=== PATIENT | female | born 1960 | race Caucasian/White ===

== ENCOUNTER 2020-08-29 11:08 | Observation (INO) | payer BC, OTHER ==
[~2020-08-29] VITALS: Ht 167.6 cm; Wt 65.8 kg
[2020-08-29] MEDS ORDERED: GLUCAGON FOR INJ 1 MG VIAL IV ONE (11:30)
[2020-08-29 11:59] LABS: BASOPHILS % 0.3 % (0.0-1.0); EOSINOPHILS # (AUTO) 0.1 (0.0-0.4); HEMATOCRIT 39.2 % (34.2-44.1); HEMOGLOBIN 12.7 g/dL (12.0-16.0); LYMPHOCYTES # (AUTO) 1.9 (1.0-3.2); MEAN CORPUSCULAR HGB CONC 32.4 g/dL (31-35); MEAN CORPUSCULAR VOLUME 95.6 fL (81-99); MONOCYTES # (AUTO) 0.8 (0.2-0.8); MONOCYTES % 8.3 % (4.4-11.3); NEUTROPHILS # (AUTO) 6.4 (2.1-6.9); PLATELET COUNT 396 x10e3/uL (140-360)
[2020-08-29] MEDS ORDERED: ROCURONIUM BROMIDE 10 MG/ML 5ML VIAL IV ONE (12:23)
[2020-08-29] MEDS ORDERED: SUCCINYLCHOLINE CHLORIDE 20 MG/ML 10ML VIAL ONE (12:23)
[2020-08-29] MEDS ORDERED: NEOSTIGMINE 1 MG/ML 10ML VIAL ONE (12:23)
[2020-08-29] MEDS ORDERED: LIDOCAINE HCL 2% LOCAL INJ 5 ML SDV VIAL INJ ONE (12:23)
[2020-08-29] MEDS ORDERED: DEXAMETHASONE SOD PHOS INJ 4 MG/ML VIAL ONE (12:23)
[2020-08-29] MEDS ORDERED: PROPOFOL IV EMULSION 10 MG/ML 20 ML VIAL ONE (12:23)
[2020-08-29] MEDS ORDERED: SEVOFLURANE INHAL SOLN 250 ML PEN BTL ONE (12:23)
[2020-08-29] MEDS ORDERED: ATROPINE SULFATE 1 MG/ML VIAL ONE (12:23)
[2020-08-29] MEDS ORDERED: ONDANSETRON HCL INJ 2MG/ML 2ML 2 MG/ML VIAL ONE (12:23)
[2020-08-29] MEDS ORDERED: MIDAZOLAM HCL 2 MG/2 ML VIAL ONE (12:24)
[2020-08-29] MEDS ORDERED: FENTANYL CITRATE/PF 100MCG/2 ML INJ ONE (12:24)
[2020-08-29 12:25] LABS: ALANINE AMINOTRANSFERASE 38 IU/L (0-55); ALBUMIN 3.9 g/dL (3.5-5.0); ALKALINE PHOSPHATASE 151 IU/L (40-150); ANION GAP 18.9 mmol/L (8-16); BLOOD UREA NITROGEN 19 mg/dL (7-26); BUN/CREATININE RATIO 26 (6-25); CALCIUM 8.9 mg/dL (8.4-10.2); CARBON DIOXIDE 26 mmol/L (22-29); CHLORIDE 104 mmol/L (98-107); CREATININE, SERUM 0.72 mg/dL (0.57-1.11); EST GLOMERULAR FILTRATION RATE > 60 ML/MIN (60-); SODIUM 146 mmol/L (136-145)
[2020-08-29 12:28] LABS: GLUCOSE 56 mg/dL (74-118); POTASSIUM 2.9 mmol/L (3.5-5.1)
[2020-08-29] MEDS ORDERED: DEXTROSE 5% 250ML 250 ML IV ONE (19:16)
[2020-08-29 19:17] LABS: BASOPHILS % 0.2 % (0.0-1.0); EOSINOPHILS % 0.3 % (0.0-6.0); HEMATOCRIT 36.9 % (34.2-44.1); HEMOGLOBIN 11.9 g/dL (12.0-16.0); LYMPHOCYTES # (AUTO) 1.8 (1.0-3.2); LYMPHOCYTES % 19.8 % (18.0-39.1); MEAN CORPUSCULAR HEMOGLOBIN 31.1 pg (28-32); MEAN CORPUSCULAR HGB CONC 32.2 g/dL (31-35); MEAN CORPUSCULAR VOLUME 96.3 fL (81-99); MONOCYTES # (AUTO) 0.8 (0.2-0.8); MONOCYTES % 9.3 % (4.4-11.3); NEUTROPHILS # (AUTO) 6.3 (2.1-6.9); NEUTROPHILS % 70.1 % (38.7-80.0); PLATELET COUNT 347 x10e3/uL (140-360); RED BLOOD COUNT 3.83 x10e6/uL (3.6-5.1)
[2020-08-29 19:36] LABS: ANION GAP 21.1 mmol/L (8-16); BLOOD UREA NITROGEN 20 mg/dL (7-26); BUN/CREATININE RATIO 33 (6-25); CALCIUM 8.6 mg/dL (8.4-10.2); CARBON DIOXIDE 19 mmol/L (22-29); CHLORIDE 107 mmol/L (98-107); CREATININE, SERUM 0.61 mg/dL (0.57-1.11); EST GLOMERULAR FILTRATION RATE > 60 ML/MIN (60-); POTASSIUM 3.1 mmol/L (3.5-5.1); SODIUM 144 mmol/L (136-145)
[2020-08-29] MEDS ORDERED: PANTOPRAZOLE 40 MG 10ML VIAL IV STA (19:36)
[2020-08-29 19:38] LABS: GLUCOSE 44 mg/dL (74-118)
[2020-08-29] MEDS ORDERED: ONDANSETRON HCL INJ 2MG/ML 2ML 2 MG/ML VIAL IV PRN (19:45)
[2020-08-29] MEDS ORDERED: DEXTROSE 5% 1,000 ML IV ONE (19:45)
[2020-08-29] MEDS ORDERED: POTASSIUM CHLORIDE 20 MEQ TAB CR PO STA (19:55)
[2020-08-29] MEDS ORDERED: PANTOPRAZOLE 40 MG 10ML VIAL ONE ×2 (20:50→21:03)
[2020-08-29] MEDS ORDERED: HYDROXYZINE HCL 25 MG TAB PO SCH (21:00)
[2020-08-29] MEDS ORDERED: POTASSIUM CHLORIDE 20 MEQ TAB CR PO ONE (21:00)
[2020-08-29] MEDS ORDERED: TRAZODONE HCL 50 MG TAB PO SCH (21:00)
[2020-08-29] MEDS ORDERED: POTASSIUM CHLORIDE 20MEQ/100ML 200 ML IV ONE (22:45)
[2020-08-29] MEDS ORDERED: ORPHENADRINE C100 MG PO (23:03)
[2020-08-29] MEDS ORDERED: folic acid PO (23:03)
[2020-08-29] MEDS ORDERED: HUMIRA40 MG/0.1 SQ (23:03)
[2020-08-29] MEDS ORDERED: BUTRANS1 EAC2 TOP (23:03)
[2020-08-29] MEDS ORDERED: VALIUM10 MG PO (23:03)
[2020-08-29] MEDS ORDERED: BIOTIN2500 MCG PO (23:03)
[2020-08-29] MEDS ORDERED: HYDROXYZINE HCL25 MG PO (23:03)
[2020-08-29] MEDS ORDERED: TRAZODONE HCL100 MG PO (23:03)
[2020-08-29] MEDS ORDERED: HYDROXYCHLOROQ200 MG PO (23:03)
[2020-08-29] MEDS ORDERED: CLOBETASOL1 EA/15 GM TOP (23:03)
[2020-08-29] MEDS ORDERED: CALCIPOTRIENE60 G1 TOP (23:03)
[2020-08-29] MEDS ORDERED: SOOLANTRA TOP (23:03)
[2020-08-29] MEDS ORDERED: CYCLOBENZAPRINE5 MG PO (23:03)
[2020-08-29] MEDS ORDERED: AMLODIPINE BESYL5 MG PO (23:03)
[2020-08-29] MEDS ORDERED: GABAPENTIN300 MG PO (23:03)
[2020-08-29 23:09] VITALS: BP 138/72
[2020-08-29] MEDS ORDERED: SOOLANTRA TOP PRN (23:15)
[2020-08-29] MEDS ORDERED: CYCLOBENZAPRINE HCL 10 MG TAB PO PRN (23:15)
[2020-08-29] MEDS ORDERED: CLOBETASOL PROPIONATE 0.05% CRM 15 GM TUBE TOP SCH (23:15)
[2020-08-29] MEDS ORDERED: CALCIPOTRIENE TOP PRN (23:15)
[2020-08-29] MEDS ORDERED: BUPRENORPHINE TOP SCH (23:15)
[2020-08-29] MEDS ORDERED: DIAZEPAM 5 MG TAB PO PRN (23:15)
[2020-08-29] MEDS ORDERED: ACETAMINOPHEN 325 MG/10 ML UDC PO PRN (23:45)
[2020-08-29] MEDS: GABAPENTIN 300 MG CAP PO SCH (23:51)
[2020-08-29] MEDS: PANTOPRAZOLE INJ 40 MG in SODIUM CHLORIDE 0.9% 50ML 50 ML IV SCH (23:51)
[2020-08-30] VITALS (9 sets, daily range): BP systolic 105–138; BP diastolic 63–78
[2020-08-30 05:03] LABS: BASOPHILS % 0.1 % (0.0-1.0); HEMOGLOBIN 10.9 g/dL (12.0-16.0); LYMPHOCYTES # (AUTO) 0.7 (1.0-3.2); LYMPHOCYTES % 8.5 % (18.0-39.1); MEAN CORPUSCULAR VOLUME 93.8 fL (81-99); MONOCYTES # (AUTO) 0.1 (0.2-0.8); MONOCYTES % 1.2 % (4.4-11.3); NEUTROPHILS # (AUTO) 7.3 (2.1-6.9); NEUTROPHILS % 89.8 % (38.7-80.0); PLATELET COUNT 331 x10e3/uL (140-360); RED BLOOD COUNT 3.52 x10e6/uL (3.6-5.1); RED CELL DISTRIBUTION WIDTH 12.7 % (11.7-14.4)
[2020-08-30 05:16] LABS: CALCIUM IONIZED 1.2 mmol/L (1.09-1.30)
[2020-08-30 05:24] LABS: ALANINE AMINOTRANSFERASE 28 IU/L (0-55); ALKALINE PHOSPHATASE 118 IU/L (40-150); ANION GAP 28.4 mmol/L (8-16); BLOOD UREA NITROGEN 12 mg/dL (7-26); BUN/CREATININE RATIO 17 (6-25); CARBON DIOXIDE 24 mmol/L (22-29); CHLORIDE 91 mmol/L (98-107); CREATININE, SERUM 0.71 mg/dL (0.57-1.11); EST GLOMERULAR FILTRATION RATE > 60 ML/MIN (60-); GLUCOSE 166 mg/dL (74-118); MAGNESIUM 1.6 MG/DL (1.3-2.1); POTASSIUM 3.4 mmol/L (3.5-5.1); SODIUM 140 mmol/L (136-145)
[2020-08-30] MEDS: PANTOPRAZOLE INJ 40 MG in SODIUM CHLORIDE 0.9% 50ML 50 ML IV SCH ×2 (05:48→07:30)
[2020-08-30 06:07] LABS: PHOSPHORUS 3.4 MG/DL (2.3-4.7)
[2020-08-30] MEDS: GABAPENTIN 300 MG CAP PO SCH (08:23)
[2020-08-30] MEDS ORDERED: POTASSIUM CHLORIDE 10MEQ/100ML 100 ML IV ONE (08:30)
[2020-08-30] MEDS ORDERED: PANTOPRAZOLE 40 MG 10ML VIAL IV SCH (09:00)
[2020-08-30] MEDS ORDERED: FOLIC ACID 1 MG TAB PO SCH (09:00)
[2020-08-30] MEDS ORDERED: AMLODIPINE BESYLATE 5 MG TAB PO SCH (09:00)
[2020-08-30] MEDS ORDERED: HYDROXYCHLOROQUINE SULFATE 200 MG TAB PO SCH (09:00)
[2020-08-30] MEDS ORDERED: (Biotin 5,000 MCG) PO SCH (09:00)
[2020-08-30] MEDS ORDERED: ORPHENADRINE CITRATE 100 MG PO SCH (21:00)
[2020-09-04] MEDS ORDERED: ADALIMUMAB 40 MG SC SCH (09:00)
== END 2020-08-30 12:16 | disposition home or self-care (01) ==
LOC: ER 11:18 → ENDO 18:31 → MED/SURG 22:02 → ICU 08-30 03:30
PROVIDERS: ADMIT Internal Medicine; ATTEND Internal Medicine
DX: T18.128A Food in esophagus causing other injury, initial encounter (principal); K29.70 Gastritis, unspecified, without bleeding; K26.9 Duodenal ulcer, unspecified as acute or chronic, without hemorrhage or perforation; I10 Essential (primary) hypertension; Z01.810 Encounter for preprocedural cardiovascular examination; Z01.812 Encounter for preprocedural laboratory examination; Z01.818 Encounter for other preprocedural examination; Z20.828 Contact with and (suspected) exposure to other viral communicable diseases
CPT/HCPCS: 36415 ×2; 43247; 71045; 80048; 80053 ×2; 82948; 83735; 84100; 84484; 85025 ×2; 93005; 99283; C9113 ×2; G0378 ×2; J0330; J0461; J1100; J1610; J2001; J2250; J2405; J2704; J2710; J3010; J3410; J3480 ×2; J7070 ×2; U0002; 43235